=== PATIENT | female | born 1950 | race Caucasian/White ===

== ENCOUNTER 2017-02-18 18:20 | Emergency (ER) | payer OTHER ==
[~2017-02-18 18:20] MED LIST: SUCCINYLCHOLINE CHLORIDE INJ 200 MG/10 ML VIAL ONE
[2017-02-18] MEDS ORDERED: LORAZEPAM INJ 2 MG/1 ML VIAL ONE (18:25)
--- NOTE | 2017-02-18 18:36 | ER Document Report ---
ED Seizure - General Time seen by provider: 18:20 Mode of Arrival: Medic Information source: Relative - spouse, Emergency Med Personnel TRAVEL OUTSIDE OF THE [place] IN LAST 30 DAYS: No - HPI Patient complains to provider of: History of seizures Time of onset: 17:25 Continued on arrival to ED: Yes Can details of seizure be obtained/verified: Yes Episode witnessed (by whom): Yes - spouse Current seizure medications: Other - depakote Injuries: None <ESPERANZA BRASHER - Last Filed: 02/18/17 21:35> <MARCUS TAYLOR - Last Filed: 02/18/17 21:56> - General Stated Complaint: POSSIBLE SEIZURE Notes: Patient is a 66 year old female presenting to the emergency department for a seizure. Patient has a history of seizures and this is the patient's 3rd seizure. The patient's last seizure was 5 years ago. Patient was normal at baseline at 16:30 today according to patient's . Patient's went outside and came back in to find patient having a "goofy look" and started the clonic activity. Patient is on Depakote 250 mg daily for her seizure disorder and is very compliant with her medications. Patient continued to have clonic activity in the ED as well as poor airway control and hyperventilation. Patient was intubated. Patient has known allergies. (ESPERANZA BRASHER) - Related Data Allergies/Adverse Reactions: No Known Allergies Allergy (Verified 11/15/12 00:06) Past Medical History - General Information source: Patient - Social History Smoking Status: Unknown if Ever Smoked Family History: None - Past Medical History Cardiac Medical History: Reports: Hx Hypercholesterolemia Neurological Medical History: Reports: Hx Seizures - 5 years ago - Immunizations Hx Diphtheria, Pertussis, Tetanus Vaccination: Yes <ESPERANZA BRASHER - Last Filed: 02/18/17 21:35> Review of Systems - Review of Systems Constitutional: No symptoms reported EENT: No symptoms reported Cardiovascular: No symptoms reported Respiratory: No symptoms reported Gastrointestinal: No symptoms reported Genitourinary: No symptoms reported Female Genitourinary: No symptoms reported Musculoskeletal: No symptoms reported Skin: No symptoms reported Hematologic/Lymphatic: No symptoms reported Neurological/Psychological: See HPI, Seizure -: Yes All other systems reviewed and negative <ESPERANZA BRASHER - Last Filed: 02/18/17 21:35> Physical Exam <ESPERANZA BRASHER - Last Filed: 02/18/17 21:35> <MARCUS TAYLOR - Last Filed: 02/18/17 21:56> - Vital signs Vitals: Resp Pulse Ox 15 99 02/18/17 18:42 02/18/17 18:42 Resp Pulse Ox 15 99 02/18/17 18:42 02/18/17 18:42 (ESPERANZA BRASHER) - Notes Notes: GENERAL: Well-appearing, well-nourished and in no acute distress HEAD: Atraumatic, normocephalic EYES: anicteric without conjunctival injection ENT: normal to inspection, dry blood in oropharynx, no gag reflux NECK: Supple with grossly normal range of motion LUNGS: Breath sounds clear to auscultation bilaterally. Hyperventilation. No wheezes rales or rhonchi HEART: Regular rate and rhythm without murmurs ABDOMEN: Normal to inspection EXTREMITIES: Persistent clonic movements of the left upper extremity. NEUROLOGICAL: Unresponsive to stimuli PSYCH: Normal mood, normal affect SKIN: Warm, Dry, normal turgor, no lesions noted (ESPERANZA BRASHER) Course - Laboratory Result Diagrams: 02/18/17 18:30 02/18/17 18:30 - Consults [facility] Transfer Line Time consulted: 20:45 <ESPERANZA BRASHER - Last Filed: 02/18/17 21:35> - Laboratory Result Diagrams: 02/18/17 18:30 02/18/17 18:30 - Diagnostic Test Radiology reviewed: Image reviewed, Reports reviewed - No active disease. Placement of the enteric and ET tube are satisfactory CT scan shows no acute abnormality compared to 2012 CT - EKG Interpretation by Nd EKG shows normal: Sinus rhythm, Malone, Intervals, QRS Complexes, ST-T Waves Rate: Tachycardia <MARCUS TAYLOR - Last Filed: 02/18/17 21:56> - Re-evaluation Re-evalutation: 02/18/17 21:[address] Miller regarding the patient and they have accepted to [facility] for further evaluation and treatment. Unfortunately we do not have Neurology consult coverage at this time and the patient will need that and proced tech care services. As well patient is obviously not a TPA candidate as this appears to be seizure related and as well would meet exclusion criteria. She has been stable in the emergency department at this point. She has had no further seizure activity. She is going to get a head CT scan at this point while we arranged final transportation plans. We have supplemented her subtherapeutic Depakote level with IV Depacon. (MARCUS TAYLOR) - Vital Signs Vital signs: Temp Pulse Resp BP Pulse Ox 14 116/77 99 02/18/17 20:45 02/18/17 20:45 02/18/17 20:45 - Laboratory Laboratory results interpreted by me: 02/18/17 02/18/17 02/18/17 18:30 18:30 19:20 WBC 15.8 H Seg Neutrophils % 81.2 H Absolute Neutrophils 12.9 H Carbon Dioxide 21 L Glucose 123 H Urine Ketones TRACE H Urine Nitrite POSITIVE H Urine Ascorbic Acid 20 H Valproic Acid 20.8 L - Consults [facility] Transfer Line Reason for consultation: 02/18/17 20:45 Contacted [facility] for possible transfer. They will temporarily accept patient and accepting physician will call back. 02/18/17 21:15 Callback from [facility]. Spoke with Dr. Miller about the patient. They will accept the patient for transfer. (ESPERANZA BRASHER) Procedures - Intubation Orotracheal Time of Intubation: 18:25 Airway evaluation: Normal anatomy Mallampati Classification: Class 2 Medications: Succinylcholine, Other - Ativan Intubation method: Orotracheal Blade type: Stack Blade size: 4 Equipment used: Glidescope ETT size: 7.5 ETT secured at: Lips ETT secured at (cm): 22 Breath Sounds after Intubation: Equal End tidal CO2 confirmed: Yes Ventilator settings: SIMV Tidal volume: 500 FiO2: 50 Respirations: 12 Pressure support: 10 PEEP: 5 Post Intubation Xray: Yes Intubation Complications: No complications <ESPERANZA BRASHER - Last Filed: 02/18/17 21:35> Scribe Documentation - Scribe Written by Rigo:: Esperanza Brasher 02/18/17 19:20 acting as scribe for :: Faith <ESPERANZA BRASHER - Last Filed: 02/18/17 21:35>
[2017-02-18] MEDS ORDERED: MIDAZOLAM 2 MG/2 ML INJ ONE (18:44)
[2017-02-18] MEDS ORDERED: PROPOFOL 100 ML IV ONE (18:44)
[2017-02-18] MEDS ORDERED: PROPOFOL 100 ML IV PRN (18:45)
[2017-02-18] MEDS ORDERED: MIDAZOLAM 2 MG/2 ML INJ IV ONE (18:46)
[2017-02-18 18:54] LABS: ABSOLUTE LYMPHOCYTES (AUTO) 2.2 10^3/uL (0.5-4.7); ABSOLUTE MONOCYTES (AUTO) 0.7 10^3/uL (0.1-1.4); ABSOLUTE NEUT (AUTO) 12.9 10^3/uL (1.7-8.2); BASOPHILS % (AUTO) 0.3 % (0-2); EOSINOPHILS % (AUTO) 0.2 % (0-6); HEMATOCRIT 40.4 % (36.0-47.0); HEMOGLOBIN 13.6 g/dL (12.0-15.5); HGB HCT DIFFERENCE 0.4; LYMPHOCYTES % (AUTO) 13.7 % (13-45); MEAN CORPUSCULAR HEMOGLOBIN 29.3 pg (27.0-33.4); MEAN CORPUSCULAR HGB CONC 33.7 g/dL (32.0-36.0); MEAN CORPUSCULAR VOLUME 87 fl (80-97); MONOCYTES % (AUTO) 4.6 % (3-13); RED BLOOD COUNT 4.65 10^6/uL (3.72-5.28); RED CELL DISTRIBUTION WIDTH 12.8 % (11.5-14.0); SEGMENTED NEUTROPHILS % (AUTO) 81.2 % (42-78); WHITE BLOOD COUNT 15.8 10^3/uL (4.0-10.5)
[2017-02-18 19:07] LABS: PROTHROMBIN TIME 12.7 SEC (11.4-15.4)
[2017-02-18] MEDS ORDERED: LORAZEPAM INJ 2 MG/1 ML VIAL IV ONE (19:10)
[2017-02-18 19:13] LABS: ALANINE AMINOTRANSFERASE 19 U/L (9-52); ALBUMIN 4.5 g/dL (3.5-5.0); ALKALINE PHOSPHATASE 57 U/L (38-126); ANION GAP 16 (5-19); ASPARTATE AMINO TRANSFERASE 30 U/L (14-36); BILIRUBIN,DIRECT 0.3 mg/dL (0.0-0.4); BILIRUBIN,TOTAL 0.4 mg/dL (0.2-1.3); BLOOD UREA NITROGEN 13 mg/dL (7-20); CALCIUM 9.3 mg/dL (8.4-10.2); CARBON DIOXIDE 21 mmol/L (22-30); CHLORIDE 105 mmol/L (98-107); GLUCOSE 123 mg/dL (75-110); POTASSIUM 4.1 mmol/L (3.6-5.0); SODIUM 142.3 mmol/L (137-145); TOTAL PROTEIN 7.6 g/dL (6.3-8.2)
[2017-02-18 19:19] LABS: VALPROIC ACID 20.8 ug/mL (50.0-120.0)
[2017-02-18] MEDS ORDERED: VALPROATE SODIUM INJ/PF 500 MG/5 ML SDV IV ONE (19:37)
[2017-02-18 21:29] LABS: APPEARANCE,URINE SLIGHTLY-CLOUDY; BILIRUBIN,URINE NEGATIVE (NEGATIVE); GLUCOSE, URINE NEGATIVE (NEGATIVE); KETONES,URINE TRACE mg/dL (NEGATIVE); LEUKOCYTE ESTERASE,URINE NEGATIVE (NEGATIVE); NITRITE,URINE POSITIVE (NEGATIVE); PROTEIN,URINE NEGATIVE (NEGATIVE); URINE SPECIFIC GRAVITY 1.011; UROBILINOGEN,URINE NEGATIVE mg/dL (<2.0)
[2017-02-18 23:10] LABS: VENOUS BLOOD BASE EXCESS 1.4 mmol/L; VENOUS BLOOD HCO3 25.4 mmol/L (20-32); VENOUS BLOOD PCO2 37.9 mmHg (35-63); VENOUS BLOOD PH 7.44 (7.30-7.42)
[2017-02-19 00:33] VITALS: BP 133/88
--- NOTE | 2017-02-19 10:19 | EKG REPORT ---
SEVERITY:- OTHERWISE NORMAL ECG - SINUS TACHYCARDIA : Confirmed by: Mg Richardson MD 19-Feb-2017 10:19:21
== END 2017-02-19 00:12 | disposition short-term general hospital (02) ==
LOC: ER 18:20
PROC: 0BH17EZ Insertion of Endotracheal Airway into Trachea, Via Natural or Artificial Opening (ICD-10-PCS; principal; 2017-02-18)
DX: R56.9 Unspecified convulsions (principal)
CPT/HCPCS: 93005; 99285; 96374; 36415; 87040; 87086; 85025; 85610; 87088; 80053; 81001; 80164; 87186; 82803; 83605; 71010; 70450; 93010; 31500; J2250; J2704; J2060; J0330; J3490; 94002

== ENCOUNTER → 2017-04-26 | Outpatient (CLI) | payer OTHER ==
--- NOTE | 2017-04-28 15:25 | EEG PRO FEE REPORT ---
EEG INTERPRETATION PATIENT NAME: DAPHNE DYE ROOM#: ORDER#: [id number] DATE OF STUDY: 04/26/2017 : 1950 REFERRING MD: JAYNA GUZMAN M.D. DIAGNOSIS: Epilepsy REPORT The background activity consists of 8-9 Hz alpha with maybe some 7 Hz theta seen posteriorly at times. No clear focal slowing, amplitude asymmetry, or epileptiform discharges are noted or seen however hyperventilation elicits normal build up. IMPRESSION Normal EEG for age INTERPRETING PHYSICIAN: LORI TAMAYO M.D. /: REFUGIO TT: 1514 ID: [id number] /: [id number] TD: 1340 JOB: [id number] cc:Courtney DA SILVA M.D. >
== END ==
LOC: NEURO 12:12
PROVIDERS: ATTEND Pediatrics
DX: G40.909 Epilepsy, unspecified, not intractable, without status epilepticus (principal)
CPT/HCPCS: 95819

== ENCOUNTER → 2018-07-13 | Outpatient (CLI) | payer MEDICARE, OTHER ==
[2018-07-13 17:18] LABS: HEMATOCRIT 42.9 % (36.0-47.0); MEAN CORPUSCULAR HEMOGLOBIN 30.9 pg (27.0-33.4); MEAN CORPUSCULAR HGB CONC 34.9 g/dL (32.0-36.0); MEAN CORPUSCULAR VOLUME 89 fl (80-97); PLATELET COUNT 245 10^3/uL (150-450); RED BLOOD COUNT 4.84 10^6/uL (3.72-5.28); WHITE BLOOD COUNT 8.4 10^3/uL (4.0-10.5)
[2018-07-13 17:41] LABS: ALANINE AMINOTRANSFERASE 15 U/L (9-52); ALBUMIN 5.1 g/dL (3.5-5.0); ALKALINE PHOSPHATASE 39 U/L (38-126); ANION GAP 17 (5-19); ASPARTATE AMINO TRANSFERASE 30 U/L (14-36); BILIRUBIN,DIRECT 0.3 mg/dL (0.0-0.4); BLOOD UREA NITROGEN 11 mg/dL (7-20); CALCIUM 9.7 mg/dL (8.4-10.2); CARBON DIOXIDE 23 mmol/L (22-30); CHLORIDE 102 mmol/L (98-107); GLUCOSE 90 mg/dL (75-110); POTASSIUM 4.3 mmol/L (3.6-5.0); SODIUM 141.7 mmol/L (137-145); TOTAL PROTEIN 8.4 g/dL (6.3-8.2)
== END ==
LOC: LAB 16:52
PROVIDERS: ATTEND Pediatrics
DX: G40.909 Epilepsy, unspecified, not intractable, without status epilepticus (principal); Z79.899 Other long term (current) drug therapy
CPT/HCPCS: 36415; 80053; 80164; 85027

== ENCOUNTER → 2018-11-07 | Outpatient (CLI) | payer MEDICARE, OTHER | LOC: LAB 13:04 | PROVIDERS: ATTEND Pediatrics | DX: G40.909 Epilepsy, unspecified, not intractable, without status epilepticus (principal) | CPT/HCPCS: 36415; 80164 ==

== ENCOUNTER → 2019-01-05 | Outpatient (CLI) | payer MEDICARE, OTHER ==
[2019-01-05 14:14] LABS: HEMATOCRIT 37.9 % (36.0-47.0); HEMOGLOBIN 13.1 g/dL (12.0-15.5); MEAN CORPUSCULAR HGB CONC 34.6 g/dL (32.0-36.0); MEAN CORPUSCULAR VOLUME 87 fl (80-97); PLATELET COUNT 250 10^3/uL (150-450); RED BLOOD COUNT 4.37 10^6/uL (3.72-5.28); RED CELL DISTRIBUTION WIDTH 12.4 % (11.5-14.0); WHITE BLOOD COUNT 8.1 10^3/uL (4.0-10.5)
[2019-01-05 14:33] LABS: ALANINE AMINOTRANSFERASE 25 U/L (9-52); ALBUMIN 4.7 g/dL (3.5-5.0); ALKALINE PHOSPHATASE 42 U/L (38-126); ANION GAP 9 (5-19); ASPARTATE AMINO TRANSFERASE 25 U/L (14-36); BILIRUBIN,DIRECT 0.1 mg/dL (0.0-0.4); BILIRUBIN,TOTAL 0.5 mg/dL (0.2-1.3); BLOOD UREA NITROGEN 10 mg/dL (7-20); CALCIUM 9.3 mg/dL (8.4-10.2); CARBON DIOXIDE 27 mmol/L (22-30); CHLORIDE 98 mmol/L (98-107); GLUCOSE 87 mg/dL (75-110); POTASSIUM 4.4 mmol/L (3.6-5.0); SODIUM 134.2 mmol/L (137-145)
== END ==
LOC: LAB 13:22
PROVIDERS: ATTEND Pediatrics
DX: G40.209 Localization-related (focal) (partial) symptomatic epilepsy and epileptic syndromes with complex partial seizures, not intractable, without status epilepticus (principal)
CPT/HCPCS: 36415; 80053; 80164; 85027

== ENCOUNTER → 2019-02-14 | Outpatient (CLI) | payer MEDICARE, OTHER ==
--- NOTE | 2019-02-14 14:45 | WOMENS IMAGING REPORT ---
EXAM DESCRIPTION: BONE DENSITY HIP/SPINE COMPLETED DATE/TIME: 02/14/2019 2:30 pm REASON FOR STUDY: Z12.31 ROUTINE BILATERAL SCREENING, M81.0 AGE RELATED OSTEOPOROSIS M81.0 AGE-RELA LIYA OSTEOPOROSIS W/O CURRENT PATHOLOGICAL FRAC Z12.31 ENCNTR SCREEN MAMMOGRAM FOR MALIGNANT NEOPLASM OF HARRISON COMPARISON: None. TECHNIQUE: Dual-Energy X-ray Absorptiometry (DEXA) of the AP Spine and Hip. LIMITATIONS: None. FINDINGS: LUMBAR SPINE: The bone mineral density (BMD) measured from L1-L4 in the AP projection correlates with a T-score of -2.7, which is osteoporosis as defined by the World Health Organization. HIP: The bone mineral density (BMD) measured in the left hip correlates with a T-score of -2.5, which is o steopenia as defined by the World Health Organization. IMPRESSION: 1. LUMBAR SPINE: OSTEOPOROSIS. 2. HIP: OSTEOPENIA. COMMENT: The World Health Organization defines low BMD as follows: T-score: Normal: Greater than -1.0 Osteopenia: Between -1.0 and -2.5 Osteoporosis: Less than -2.5 without fractures Established osteoporosis: Less than -2.5 with fractures In general, you may wish to consider: Diagnosis Treatment Follow-up DEXA Normal BMD Prevention 2-3 years Osteopenia Prevention/Therapy 1-2 years Osteoporosis Therapy Yearly TECHNICAL DOCUMENTATION: JOB ID: [id number] [employer]- All Rights Reserved Reading location - IP/workstation name: [email or web address]
--- NOTE | 2019-02-14 14:57 | WOMENS IMAGING REPORT ---
EXAM DESCRIPTION: BILAT SCREENING MAMMO W/CAD COMPLETED DATE/TIME: 02/14/2019 2:30 pm REASON FOR STUDY: Z12.31 ROUTINE BILATERAL SCREENING M81.0 AGE-RELATED OSTEOPOROSIS W/O CURRENT PAT [facility]OLOGICAL [facility] Z12.31 ENCNTR SCREEN MAMMOGRAM FOR MALIGNANT NEOPLASM OF H[place]ISON COMPARISON: None. TECHNIQUE: Standard craniocaudal and mediolateral oblique views of each breast recorded using digita l acquisition. LIMITATIONS: None. FINDINGS: No masses, calcifications or architectural distortion. No areas of suspicion. Read with the assistance of CAD. .[facility] - R2 Cenova Version 1.3 .[facility] - R2 Cenova Version 2.1 .[facility] - R2 Cenova Version 2.4 .[facility] [place] - R2 Cenova Version 2.4 .[facility] - R2 Computer Architect Version 9.2 IMPRESSION: NORMAL MAMMOGRAM. BIRADS 1. BREAST DENSITY: b. There are scattered areas of fibroglandular density. BIRAD: 1 NEGATIVE RECOMMENDATION: ROUTINE SCREENING COMMENT: The patient has been notified of the results by letter per SA requirements. Additional no tification policies are in place for contacting patient with suspicious or incomplete findings. Quality ID #[id number]: The [employer] recommends an annual screening mammogram for women aged 40 years or over. This facility utilizes a reminder system to ensure that all patients receive reminder letters, and/or direct phone calls for appointments. This includes reminders for routine scr eening mammograms, diagnostic mammograms, or other Breast Imaging Interventions when appropriate. Th is patient will be placed in the appropriate reminder system. The [employer] (ACR) has developed recommendations for screening MRI of the breast s in certain patient populations, to be used in conjunction with mammography. Breast MRI surveillanc e may be appropriate for women with more than 20% lifetime risk of developing breast cancer as deter mined by genetic testing, significant family history of the disease, or history of mantle radiation f or Hodgkins Disease. ACR Practice Guidelines 2008. TECHNICAL DOCUMENTATION: FINDING NUMBER: (1) ASSESSMENT: (1) JOB ID: [id number] [employer]- All Rights Reserved Reading location - IP/workstation name: [email or web address]
== END ==
LOC: WI 13:55
PROVIDERS: ATTEND Family Medicine
DX: Z12.31 Encounter for screening mammogram for malignant neoplasm of breast (principal); M81.0 Age-related osteoporosis without current pathological fracture
CPT/HCPCS: 77067; 77080

== ENCOUNTER 2020-12-10 03:57 | Emergency (ER) | payer MEDICARE, OTHER ==
[2020-12-10] MEDS: NORMAL SALINE 1000 ML 1,000 ML IV PRN ×2 (04:05→05:23)
[2020-12-10] MEDS ORDERED: MIDAZOLAM HCL 50 MG/100 ML RTUINJ IV PRN (04:09)
[2020-12-10 04:45] LABS: HEMATOCRIT 39.8 % (36.0-47.0); HEMOGLOBIN 12.9 g/dL (12.0-15.5); MEAN CORPUSCULAR HEMOGLOBIN 29.4 pg (27.0-33.4); MEAN CORPUSCULAR HGB CONC 32.4 g/dL (32.0-36.0); MEAN CORPUSCULAR VOLUME 91 fl (80-97); PLATELET COUNT 261 10^3/uL (150-450); RED CELL DISTRIBUTION WIDTH 13.5 % (11.5-14.0); WHITE BLOOD COUNT 12.2 10^3/uL (4.0-10.5)
--- NOTE | 2020-12-10 04:51 | RADIOLOGY REPORT (SQ) ---
CT head without contrast on 12/10/2020 at 4:28 AM CLINICAL INDICATION: Status epilepticus TECHNIQUE: Multiple axial images are obtained throughout the head without the administration of contrast. This exam was performed according to our departmental dose-optimization program, which includes automated exposure control, adjustment of the mA and/or kV according to patient size and/or use of iterative reconstruction technique. Total DLP is 1150.19 mGy*cm. COMPARISON: 02/18/2017 FINDINGS: There is mild generalized cerebral atrophy. 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 There is no CT evidence of acute infarct. There is no hemorrhage. There are no abnormal extra-axial fluid collections. There is no mass, mass effect or midline shift. No bony abnormality is noted. IMPRESSION: Stable examination with no acute intracranial abnormality.
[2020-12-10 04:59] LABS: ALBUMIN 4.1 g/dL (3.5-5.0); ALKALINE PHOSPHATASE 34 U/L (38-126); ASPARTATE AMINO TRANSFERASE 37 U/L (14-36); BILIRUBIN,DIRECT 0.2 mg/dL (0.0-0.4); BILIRUBIN,TOTAL 0.3 mg/dL (0.2-1.3); BLOOD UREA NITROGEN 10 mg/dL (7-20); CALCIUM 8.4 mg/dL (8.4-10.2); CARBON DIOXIDE 13 mmol/L (22-30); CREATINE KINASE 107 U/L (30-135); GLUCOSE 258 mg/dL (75-110); POTASSIUM 3.3 mmol/L (3.6-5.0); TOTAL PROTEIN 6.5 g/dL (6.3-8.2)
[2020-12-10 05:04] LABS: CHLORIDE 100 mmol/L (98-107); INTERNATIONAL RATION (INR) 1.12; PROTHROMBIN TIME 14.6 SEC (11.4-15.4)
[2020-12-10 05:05] LABS: ANION GAP 24 (5-19); PARTIAL THROMBOPLASTIN TIME 30.4 SEC (23.5-35.8)
[2020-12-10 05:08] LABS: ABSOLUTE LYMPHOCYTES# (MANUAL) 5.6 10^3/uL (0.5-4.7); ABSOLUTE MONOCYTES # (MANUAL) 0.4 10^3/uL (0.1-1.4); BAND NEUTROPHILS % (MANUAL) 3 % (3-5); BASOPHILS % (MANUAL) 0 % (0-2); EOSINOPHILS % (MANUAL) 1 % (0-6); LYMPHOCYTES % (MANUAL) 46 % (13-45); MONOCYTES % (MANUAL) 3 % (3-13); SEGMENTED NEUTROPHILS % (MAN) 47 % (42-78); TOTAL CELLS COUNTED 100
[2020-12-10 05:09] LABS: VENOUS BLOOD BASE EXCESS -13.6 mmol/L; VENOUS BLOOD HCO3 14.9 mmol/L (20-32); VENOUS BLOOD PCO2 43.8 mmHg (35-63)
[2020-12-10 05:09] LABS: PLATELET COMMENT ADEQUATE; RBC MORPHOLOGY COMMENT NORMO-CYTIC/CHROMIC
[2020-12-10 05:13] LABS: VENOUS BLOOD PH 7.15 (7.30-7.42)
--- NOTE | 2020-12-10 05:27 | RADIOLOGY REPORT (SQ) ---
CHEST X-RAY 1 VIEW on 12/10/2020 at 4:35 AM CLINICAL INDICATION: Intubated, status epilepticus COMPARISON: 02/18/2017 FINDINGS: ET tube tip is low at the level of dang and pointed just into the right mainstem bronchus, would recommend retraction of the ET tube by 3 cm. NG tube extends into the body of the stomach. There is mild left basilar opacity likely representing atelectasis although cannot exclude early pneumonia or aspiration. The lungs are otherwise clear. Heart is within normal limits for size. IMPRESSION: 1. ET tube is low, recommend retraction by [address] Cuevas in the emergency department was made aware of this finding and recommendation by myself by phone on 12/10/2020 at 5:26 AM eastern time. 2. Mild left basilar atelectasis or pneumonia, consider aspiration.
[2020-12-10] MEDS ORDERED: LEVETIRACETAM 500 MG/NACL-ISO 500 MG/100 ML RTUPB IV ONE (05:50)
--- NOTE | 2020-12-10 06:53 | ER Document Report ---
ED General - General Stated Complaint: POSSIBLE SEIZURES Notes: 60-year-old female with history of hyperlipidemia, seizure disorder on Depakote presents with seizure activity since 2 AM on day of presentation. states that patient was in her usual state of health when she went to bed and woke him up at 2 AM with shaking movements of whole body bilaterally in the bed. He observed it for approximately 1 hour and then called EMS because patient has had similar episodes that have resolved and been attributed to "night terrors" by neurologist. says that patient has otherwise been feeling well and did not have any recent complaints and has not had any recent infections, recent changes in her medications, and had a regular appointment with her neurologist yesterday. denies any alcohol/other drug use or withdrawal. TRAVEL OUTSIDE OF THE [place] IN LAST 30 DAYS: No - Related Data Allergies/Adverse Reactions: No Known Allergies Allergy (Verified 11/15/12 00:06) Home Medications: Depakote Past Medical History - General Information source: Relative, Emergency Med Personnel - Social History Smoking Status: Unknown if Ever Smoked Family History: None Patient has homicidal ideation: No - Past Medical History Cardiac Medical History: Reports: Hx Hypercholesterolemia Neurological Medical History: Reports: Hx Seizures - 5 years ago - Immunizations Hx Diphtheria, Pertussis, Tetanus Vaccination: Yes Review of Systems - Review of Systems -: Yes ROS unobtainable due to patient's medical condition Physical Exam - Vital signs Vitals: Resp BP Pulse Ox 15 97/71 L 98 12/10/20 04:00 12/10/20 04:00 12/10/20 04:00 - Notes Notes: PHYSICAL EXAMINATION: GENERAL: Middle-aged woman intubated and sedated appearing stated age HEAD: Atraumatic, normocephalic. EYES: Pupils equal round and appropriate constriction, sclera anicteric, conjunctiva are normal. ENT: nares patent, moist mucous membranes, ET tube in place NECK: Normal range of motion, supple without lymphadenopathy LUNGS: Breath sounds clear to auscultation bilaterally and equal. No wheezes rales or rhonchi. HEART: Regular rate and rhythm without murmurs ABDOMEN: Soft, nontender, no guarding, no masses, no CVAT EXTREMITIES: Normal range of motion, no pitting or edema. No cyanosis. NEUROLOGICAL: Pinpoint pupils bilaterally, sedated, overbreathing vent SKIN: Warm, Dry, normal turgor, no rashes or lesions noted. Course - Re-evaluation Re-evalutation: 12/10/20 07:01 Patient presents in status epilepticus, not visibly seizing in the ED will require EEG at outside facility. No signs of trauma on head to toe fully undressed trauma evaluation. No identifiable precipitating factors after discussion with and no emergent findings on head CT. Discussed with Brittany johnson at [facility] who has accepted patient under Dr. Barrientos to neuro ICU. Patient's initial VBG acidotic so increased rate from 15-20 and requested that THELMA Azevedo repeat VBG. Initial chest x-ray with ET tube tip at dang, requested that THELMA Azevedo contact respiratory to pull back ET tube 3 cm. Ordered repeat chest x-ray. Signed over patient to Dr. Cummings pending repeat VBG, repeat chest x-ray, and transport to [facility] ETA 9 am. Informed patient's of results and discussed patient's care with him and he approved of transfer. - Vital Signs Vital signs: Temp Pulse Resp BP Pulse Ox 0 L 108/72 100 12/10/20 07:30 12/10/20 07:30 12/10/20 07:30 - Laboratory Results Result Diagrams: 12/10/20 04:05 12/10/20 04:05 Laboratory Results Interpreted: 12/10/20 12/10/20 12/10/20 04:05 04:05 04:50 WBC 12.2 H Lymphocytes % (Manual) 46 H Abs Lymphs (Manual) 5.6 H VBG pH 7.15 L* VBG HCO3 14.9 L Sodium 136.8 L Potassium 3.3 L Carbon Dioxide 13 L Anion Gap 24 H Est GFR (MDRD) Non-Af 53 L Glucose 258 H AST 37 H Alkaline Phosphatase 34 L Critical Laboratory Results Reviewed: Yes Attending or Supervising Physician who Reviewed Labs: CINDI CHOW - initial pH - Radiology Results Critical Radiology Results Reviewed: No Critical Results - EKG Interpretation by Me Additional EKG results interpreted by me: 12/10/20 07:08 Sinus tachycardia, no significant ST elevations or depressions, no significant T wave abnormalities Critical Care Note - Critical Care Note Total time excluding time spent on procedures (mins): 45 - Spent time stabilizing patient and consulting with specialists and arranging transfer for critical patient with status epilepticus Discharge - Discharge Clinical Impression: Status epilepticus Disposition: [facility]
--- NOTE | 2020-12-10 07:40 | RADIOLOGY REPORT (SQ) ---
CHEST X-RAY 1 VIEW on 12/10/2020 at 7:12 AM CLINICAL INDICATION: ET tube readjusted COMPARISON: 12/10/2020 at 4:35 AM FINDINGS: ET tube tip is now approximately 2.7 cm above the level of the dang in good position. NG tube extends into the stomach and below the level of this film. There has been essential resolution of left basilar opacity consistent with resolving atelectasis. The lungs are otherwise clear. Cardiac, hilar and mediastinal contours are within normal limits. IMPRESSION: Resolving left lower lung atelectasis with improved positioning of the ET tube.
[2020-12-10] MEDS ORDERED: PROPOFOL 1,000 MG/100 ML INFUS..BTL IV PRN (07:48)
--- NOTE | 2020-12-10 07:50 | ER Document Report ---
Doctor's Note Notes: 12/10/20 07:50 I evaluated the patient at 0 7:45 AM immediately prior to transfer to ensure her stability. Her condition was stable and unchanged. The transfer team asked us to switch her from a Versed drip to a propofol drip because per their protocols they cannot administer Versed continuously. They will have the capability of giving bolus Versed should she have breakthrough seizures. A propofol drip at 10 mcg/kg/min was ordered. The patient is stable for transfer at this time.
[2020-12-10 08:13] VITALS: BP 108/72
== END 2020-12-10 08:13 | disposition short-term general hospital (02) ==
LOC: ER 03:57
DX: G40.901 Epilepsy, unspecified, not intractable, with status epilepticus (principal); Z79.899 Other long term (current) drug therapy; Z20.822 Contact with and (suspected) exposure to COVID-19
CPT/HCPCS: 99285; 96361; 51702; 96374; 36415; 82550; 85025; 85610; 85730; 0241U; 80053; 80164; 82803; 71045; 70450; 94660; J2704; J2250; J7030; J1953; C9803